=== PATIENT | female | born 1965 | race Hispanic/Latino ===

== ENCOUNTER 2017-09-22 01:09 | Emergency (ER) | payer SELFPAY ==
[~2017-09-22 01:09] MED LIST: LISI1TAB9 PO
== END 2017-09-22 01:48 | disposition home or self-care (01) ==
LOC: EDH 01:09
DX: S50.02XA Contusion of left elbow, initial encounter (principal); S60.212A Contusion of left wrist, initial encounter; Z98.890 Other specified postprocedural states; Z72.0 Tobacco use; W18.39XA Other fall on same level, initial encounter; Y93.89 Activity, other specified; Y92.89 Other specified places as the place of occurrence of the external cause; Y99.8 Other external cause status
CPT/HCPCS: 73080; 73110

== ENCOUNTER 2018-05-16 16:22 | Emergency (ER) | payer OTHER ==
[2018-05-16] MEDS ORDERED: LACTATED RINGERS 1000ML 1,000 ML IV ONE (16:57)
[2018-05-16] MEDS ORDERED: FAMOTIDINE/PF 20 MG/2 ML VIAL IV ONE (16:58)
[2018-05-16 17:03] LABS: APPEARANCE,URINE Clear (CLEAR); BILIRUBIN,URINE Negative (NEGATIVE); COLOR,URINE Dark Yellow (YELLOW); GLUCOSE, URINE (UA) Negative (NEGATIVE); KETONES,URINE 15 mg/dL (NEGATIVE); LEUKOCYTE ESTERASE ,URINE Trace (NEGATIVE); NITRATE,URINE Negative (NEGATIVE); OCCULT BLOOD,URINE Negative (NEGATIVE); PROTEIN,URINE Trace (NEGATIVE)
[2018-05-16] MEDS ORDERED: LIDOCAINE HCL 2% VISCOUS 15 ML UDCUP ONE (17:18)
[2018-05-16 17:19] LABS: BACTERIA,URINE Rare /HPF (None Seen); MUCUS,URINE Moderate LPF (None Seen); RBC,URINE None Seen /HPF (0-1); WBC,URINE 0-1 /HPF (0-1)
[2018-05-16] MEDS ORDERED: KETOROLAC TROMETHAMINE 30MG/ML ONE (17:19)
[2018-05-16] MEDS ORDERED: PREDNISONE 20 MG TABLET ONE ×2 (17:19→17:20)
[2018-05-16] MEDS ORDERED: MAG HYDROX/AL HYDROX/SIMETH ES 30 ML SUSP UDCUP ONE (17:19)
[2018-05-16 17:24] LABS: EOSINOPHILS % (AUTO) 2.7 % (0.0-8.0); LYMPHOCYTES % (AUTO) 37.3 % (21.0-51.0); MEAN CORPUSCULAR HEMOGLOBIN 30.6 pg (27.0-33.0); MEAN CORPUSCULAR HGB CONC 34.1 g/dL (32.0-36.0); MEAN CORPUSCULAR VOLUME 89.8 fL (79-99); MONOCYTES % (AUTO) 7.3 % (3.0-13.0); NEUTROPHILS % (AUTO) 51.7 % (40.0-77.0); PLATELET COUNT (AUTO) 349 K/uL (130-400); RED BLOOD CELL COUNT(AUTO) 4.56 MIL/uL (4.00-5.50); RED CELL DISTRIBUTION WIDTH 14.6 % (11.0-15.5); WHITE BLOOD COUNT (AUTO) 7.4 K/uL (4.8-10.8)
[2018-05-16 17:35] LABS: CREATININE 0.7 mg/dL (0.5-1.5); POTASSIUM 3.8 mmol/L (3.5-5.1)
[2018-05-16 17:38] LABS: ALBUMIN 3.6 g/dL (3.5-5.0); BILIRUBIN,TOTAL 0.7 mg/dL (0.2-1.0)
[2018-05-16] MEDS ORDERED: IPRATROPIUM/ALBUTEROL SULFATE 3 ML SOLUTION IH ONE (17:53)
== END 2018-05-16 18:47 | disposition home or self-care (01) ==
LOC: EDH 16:22
DX: B34.9 Viral infection, unspecified (principal); J03.90 Acute tonsillitis, unspecified; Z72.0 Tobacco use
CPT/HCPCS: 36415; 80053; 81001; 83605; 83690; 85025; 87804 ×2; 87880; 94640; 96372; 96374; 99284; J1885; J3490; J7120

== ENCOUNTER 2022-07-07 11:20 | Emergency (ER) | payer OTHER ==
[~2022-07-07] VITALS: Ht 165.1 cm; Wt 86.2 kg
[~2022-07-07 11:20] MED LIST changes: +LISI1TAB49 PO; -LISI1TAB9 PO
[2022-07-07 11:53] LABS: BASOPHILS % (AUTO) 0.9 % (0.0-5.0); EOSINOPHILS % (AUTO) 2.6 % (0.0-8.0); HEMATOCRIT 46.9 % (36-48); LYMPHOCYTES % (AUTO) 37.5 % (21.0-51.0); MEAN CORPUSCULAR HEMOGLOBIN 29.7 pg (27.0-33.0); MEAN CORPUSCULAR HGB CONC 32.6 g/dL (32.0-36.0); MEAN CORPUSCULAR VOLUME 91.1 fL (79-99); MONOCYTES % (AUTO) 7.9 % (3.0-13.0); NEUTROPHILS % (AUTO) 50.8 % (40.0-77.0); PLATELET COUNT (AUTO) 296 K/uL (130-400); RED BLOOD CELL COUNT(AUTO) 5.15 MIL/uL (4.00-5.50); RED CELL DISTRIBUTION WIDTH 13.2 % (11.0-15.5); WHITE BLOOD COUNT (AUTO) 7.6 K/uL (4.8-10.8)
[2022-07-07 11:55] LABS: APPEARANCE,URINE CLEAR (CLEAR); BILIRUBIN,URINE NEGATIVE (NEGATIVE); COLOR,URINE COLORLESS (YELLOW); GLUCOSE, URINE (UA) NEGATIVE (NEGATIVE); KETONES,URINE NEGATIVE (NEGATIVE); LEUKOCYTE ESTERASE ,URINE NEGATIVE Leu/uL (NEGATIVE); NITRATE,URINE NEGATIVE (NEGATIVE); OCCULT BLOOD,URINE NEGATIVE (NEGATIVE); PROTEIN,URINE NEGATIVE (NEGATIVE); RBC,URINE 0-1 /HPF (0-1); SQUAMOUS EPITHELIAL CELL,UR RARE /HPF (0-2); UROBILINOGEN,URINE 0.2 mg/dL (0.2-1.0)
[2022-07-07 11:57] LABS: CREATININE 0.7 mg/dL (0.5-1.5); POTASSIUM 3.4 mmol/L (3.5-5.1)
[2022-07-07 12:02] LABS: TOTAL PROTEIN, SERUM 8.8 g/dL (6.0-8.3)
[2022-07-07 12:22] VITALS: BP 146/78
[2022-07-07] MEDS ORDERED: POTASSIUM BICARB/CIT AC 25 MEQ TABLET.EFF ONE (13:06)
[2022-07-07] MEDS ORDERED: HYDR12.54 PO (13:11)
== END 2022-07-07 13:47 | disposition home or self-care (01) ==
LOC: EDH 11:20
DX: I10 Essential (primary) hypertension (principal); Z91.199 Patient's noncompliance with other medical treatment and regimen due to unspecified reason; Z79.899 Other long term (current) drug therapy
CPT/HCPCS: 36415; 71045; 80053; 81001; 84484; 85025; 93005

== ENCOUNTER 2023-07-19 11:53 | Emergency (ER) | payer OTHER ==
[~2023-07-19] VITALS: Ht 165.1 cm; Wt 86.2 kg
[~2023-07-19 11:53] MED LIST changes: +HYDR12.54 PO
[2023-07-19 12:18] VITALS: BP 156/91; PULSE 90; RESP 16; O2SAT 97
[2023-07-19] MEDS ORDERED: MELOXICAM 7.5 MG TABLET PO SCH (15:00)
[2023-07-19 15:26] LABS: BASOPHILS # (AUTO) 0.06 K/uL (0.00-0.20); BASOPHILS % (AUTO) 0.7 % (0.0-5.0); EOSINOPHILS # (AUTO) 0.18 K/uL (0.00-0.70); HEMATOCRIT 40.1 % (36-48); IMMATURE GRANULOCYTE ABSOLUTE 0.02 K/uL (0-1); LYMPHOCYTES # (AUTO) 3.2 K/uL (1.0-4.8); MEAN CORPUSCULAR HEMOGLOBIN 29.9 pg (27.0-33.0); MEAN CORPUSCULAR HGB CONC 32.9 g/dL (32.0-36.0); MEAN CORPUSCULAR VOLUME 90.7 fL (79-99); MONOCYTES # (AUTO) 0.7 K/uL (0.1-1.0); MONOCYTES % (AUTO) 7.8 % (3.0-13.0); NEUTROPHILS # (AUTO) 4.8 K/uL (1.8-7.7); NEUTROPHILS % (AUTO) 53.3 % (40.0-77.0); PLATELET COUNT (AUTO) 315 K/uL (130-400); RED BLOOD CELL COUNT(AUTO) 4.42 MIL/uL (4.00-5.50); RED CELL DISTRIBUTION WIDTH 13.9 % (11.0-15.5); WHITE BLOOD COUNT (AUTO) 8.9 K/uL (4.8-10.8)
[2023-07-19 15:39] LABS: CREATININE 0.7 mg/dL (0.5-1.5); POTASSIUM 4.1 mmol/L (3.5-5.1)
[2023-07-19] MEDS ORDERED: MELO-106 PO (16:20)
[2023-07-19 16:34] LABS: ERYTHROCYTE SEDIMENTATION RATE 28 MM/HR (0-30)
== END 2023-07-19 17:22 | disposition home or self-care (01) ==
LOC: EDH 11:53
DX: M17.12 Unilateral primary osteoarthritis, left knee (principal); M25.462 Effusion, left knee; I10 Essential (primary) hypertension; E78.00 Pure hypercholesterolemia, unspecified; Z90.49 Acquired absence of other specified parts of digestive tract; Z79.899 Other long term (current) drug therapy; Z98.890 Other specified postprocedural states
CPT/HCPCS: 36415; 73562; 80048; 85025; 85651

== ENCOUNTER 2025-04-07 08:24 | Observation (INO) | payer OTHER, MEDICARE ==
[2025-04-06 13:25] LABS: IMMATURE GRANULOCYTE ABSOLUTE 0.01 K/uL (0-1); NUCLEATED RED BLOOD CELLS 0.0 % (0.0-0.19); PLATELET COUNT (AUTO) 301 K/uL (130-400); RED BLOOD CELL COUNT(AUTO) 4.19 MIL/uL (4.00-5.50); RED CELL DISTRIBUTION WIDTH 13.5 % (11.0-15.5); WHITE BLOOD COUNT (AUTO) 7.5 K/uL (4.8-10.8)
[2025-04-06 13:35] LABS: INR 1.02 (0.85-1.15)
[2025-04-06 13:48] LABS: APPEARANCE,URINE CLEAR (CLEAR); GLUCOSE, URINE (UA) NEGATIVE (NEGATIVE); LEUKOCYTE ESTERASE ,URINE NEGATIVE Leu/uL (NEGATIVE); NITRATE,URINE NEGATIVE (NEGATIVE); OCCULT BLOOD,URINE NEGATIVE (NEGATIVE)
--- NOTE | 2025-04-06 13:50 | NUR ---
RE: IS INITIAL IS INITIAL INSTRUCTIONS DONE DURING PREOP BY RT CAMILA.
[2025-04-06 13:51] VITALS: BP 151/75; PULSE 68; RESP 17; TEMP 98.4
[2025-04-06 13:55] LABS: ADD UA MICROSCOPIC NO
[2025-04-07] VITALS (25 sets, daily range): BP systolic 91–121; BP diastolic 32–79; PULSE 66–92; RESP 10–20; TEMP 96.8–98.2; O2SAT 99–100
[~2025-04-07] VITALS: Ht 165.1 cm; Wt 91.4 kg
[~2025-04-07 08:24] MED LIST changes: -HYDR12.54 PO; -LISI1TAB49 PO; +LISI20TA24 PO; +SIMV-46 PO
[2025-04-07] MEDS: LACTATED RINGERS 1000ML 1,000 ML IV ONE (08:48)
[2025-04-07 09:20] LABS: CREATININE 0.7 mg/dL (0.5-1.0); GLOMERULAR FILTR. RATE CALC 101.0 mL/min (>90); GLUCOSE,RANDOM 100.0 mg/dL (70-105); SODIUM SERUM 140.0 mmol/L (136-145); UREA NITROGEN, BLOOD 13.0 mg/dL (7-18)
[2025-04-07] MEDS ORDERED: VANCOMYCIN 500MG+NS 100ML 100 ML IV ONE (12:11)
[2025-04-07] MEDS ORDERED: MIDAZOLAM HCL 1 MG/ML 2ML VIAL ONE (12:50)
[2025-04-07] MEDS ORDERED: SUCCINYLCHOLINE CHLORIDE 20 MG/ML 10 ML VIAL ONE (12:53)
[2025-04-07] MEDS: TRANEXAMIC ACID 1000MG/10ML ONE ×2 (13:25→16:51)
[2025-04-07] MEDS ORDERED: FERROUS FUMARATE 324 MG TABLET PO PRN (16:00)
[2025-04-07] MEDS ORDERED: CALCIUM CARB 500MG PO PRN (16:00)
[2025-04-07] MEDS ORDERED: PoTASSium chl 10% ELIXIR 20MEQ 20 MEQ/15 ML UDCUP PO PRN (16:00)
[2025-04-07] MEDS ORDERED: PoTASSium chloRIDE 20MEQ ER 20 MEQ ERTAB PO PRN (16:00)
--- NOTE | 2025-04-07 16:04 | OP ---
Operative Note: DATE OF PROCEDURE: 04/07/25 SURGEON: MELVIN ORTEGA MD MINUTE CLERK FOR BASIC TRAFFIC: [Lashawn Mills CFA] ANESTHESIA: [General anesthesia plus regional block] ANESTHESIOLOGIST/ACTIVITIES AIDE: [Candido Strickland CRNA] PREOPERATIVE DIAGNOSIS: [Left knee osteoarthritis] POSTOPERATIVE DIAGNOSIS: [Same] IMPLANTS: [Biomet vanguard. Femur 65 left PS. Tibia 67 fixed cruciate. Tibial liner 14 by 63/67 PS plus. Patella size 31 by eight, asymmetric] PROCEDURE: [Left total knee arthroplasty] ESTIMATED BLOOD LOSS: [100 mL] INDICATIONS: [The patient is a 59-year-old female with a history of pain to the left knee secondary to osteoarthritis. The patient has been admitted for a left total knee arthroplasty after failing conservative treatment. The patient understood the procedure, risks, benefits and possible complications and agreed signed the consent form.] DESCRIPTION OF PROCEDURE: [After adequate general anesthesia was achieved and regional block obtained the left lower extremity was prepped and draped in the usual manner previous placement of the tourniquet in the proximal thigh. The extremity was then elevated and exsanguinated with an Esmarch bandage and the tourniquet inflated to 250 mmHg the Esmarch band been then removed. With the knee in flexion a longitudinal incision was then made in the anterior aspect through the skin followed by dissection of the subcutaneous tissue. A bone infusion needle was then inserted just medial to the tibial tuberosity and through this needle we injected into the bone a solution of normal saline 50 mL mixed with 500 mg of vancomycin. The needle was removed. A paramedian approach was then made with the Bovie cautery cutting through the quadriceps tendon, medial patellar retinaculum and patellar tendon retinaculum. The retropatellar tendon fat was then excised and the soft tissue elements of the tibia were elevated subperiosteally and retractors were applied medially and laterally . The anterior and posterior cruciate ligaments were resected. With the use of a drill a starting hole was made in the distal femur entering the intramedullary canal and then after removal of the drill an intramedullary guide was inserted with a 5 degree valgus block that touched the distal femur and to this the distal femoral cutting guide was then applied anteriorly and was secured to the distal femur with the use of pins. The intramedullary guide was then removed and with the use of the oscillating saw we proceeded to resect the distal femur removing the fragments and the guide. The femoral sizer was then applied distally and drill holes were made removing the sizer and the 4-in-1 cutting block was then inserted and the anterior, posterior and chamfer cuts were made removing the fragments and the block. The PS cutting guide was then inserted and the intercondylar cut was made removing the fragment and the guide. The posterior cruciate ligament retractor was then inserted posterior to the tibia and this was brought forward proceeding then to apply the external tibial alig nment guide and secured the proximal cutting guide to the tibia with the use of pins. With the use of the oscillating saw the proximal cut to the tibia tibia was made. The bone fragment was removed and the trial tibia plate was chosen. At this point the menisci were removed sharply and with the use of the curved osteotome the posterior osteophytes of the femur were removed. The trial components were then inserted at the femur and tibia with a trial tibial liner bringing the knee into extension noticing that the patient had a very stable knee in flexion, extension and with valgus and varus stress. The knee was maintained in extension and the patella was then addressed proceeding to measure its thickness and then with the use of the oscillating saw we removed eight mm from the articular surface and restored the height with application of a trial component after 3 peg holes were made. The patellofemoral ligament was removed and then the patellofemoral tracking was checked noticing to be slightly lateralized and for this reason a small lateral retinacular release was performed bringing the tracking back to normal. At this moment all the components were removed, the tibia after the metaphyseal defect was created and while cement was being mixed on the back table we proceeded to irrigate the joint with antibiotic solution and then cover the entry to the femoral canal with a bone plug. Once the cement was ready we proceeded to apply it first to the tibia surface inserting the final component and then to the femoral surface and inserted the final component removing the excess cement and then applying a trial liner bringing the knee into extension for compression. Then we proceeded to irrigate the patella surface and dried it applying then bone cement and the final patellar component was inserted and was secured with application of a clamp. The joint was irrigated with a warm diluted Betadine solution while the cement dried followed by irrigation with antibiotic solution. The trial liner was removed as well as the patellar clamp and we proceeded then to irrigate the posterior aspect of the joint to remove all the remaining debris and the final tibial liner was inserted and locked against the tibia. The range of motion was checked and noticed to be adequate with full extension and flexion, no laxity in valgus or varus stress and with adequate patellofemoral tracking. The patient had no anterior or posterior drawer. The tourniquet was then deflated and this was followed by hemostasis and the wound was then closed with approximation of the quadriceps tendon, patellar retinaculum and patellar tendon retinaculum with #1 Vicryl close stitches alternating with #1 Ethibond stitches, and closure of the subcutaneous tissue with 2-0 Monocryl inverted stitches and the skin was closed with 3-0 Monocryl subcuticularly. The wound was covered with a suction dressing followed by application of an Pedrito bandage for compression and the drapes were then removed transferring the patient to the hospital bed and taken to recovery room for follow-up by anesthesia. There were no complications during the procedure.] MELVIN ORTEGA MD Apr 07, 2025 16:04
--- NOTE | 2025-04-07 17:26 | NUR ---
left lower ext warm touch ,capillary <3 , pedial pulse +2.
--- NOTE | 2025-04-07 18:06 | NUR ---
PATIENT ARRIVED ON UNIT VIA HOSPITAL BED. NO SIGNS OF DISTRESS NOTED. PATIENT VERBALIZES NO PAIN ON ARRIVAL. WILL CONTINUE TO MONITOR AND FOLLOW THROUGH WITH ORDERS.
[2025-04-07] MEDS: 0.9%NACL 1000ML 1,000 ML IV SCH (18:15)
--- NOTE | 2025-04-07 18:20 | NUR ---
late entry gave pt 0.5 mg hydromorphone via ivp at 1713 , for pain level of 10 per anesthesia orders. At 171 gave second dose of hydromorphone 0.5 mg ivp for pain level of 9 , gave a total of 1mg hydromorphone . Pt resting eyes closed report decrease of pain level to a 2.
--- NOTE | 2025-04-07 18:33 | NUR ---
late entry at 1735 Gave report to Kirsty Holloway .
[2025-04-07] MEDS: LISINOPRIL 20 MG TABLET PO SCH (19:46)
[2025-04-07] MEDS: ASPIRIN 81 MG EC TAB PO SCH (20:01)
[2025-04-07] MEDS: FAMOTIDINE 20MG TAB PO SCH (20:01)
[2025-04-08] VITALS: BP 148/74; PULSE 84; RESP 20; TEMP 97.6
[2025-04-08 04:00] VITALS: BP 112/73; PULSE 75; RESP 20; TEMP 97.8
[2025-04-08 04:17] LABS: NUCLEATED RED BLOOD CELLS 0.0 % (0.0-0.19); PLATELET COUNT (AUTO) 201.0 K/uL (130-400); RED BLOOD CELL COUNT(AUTO) 3.18 MIL/uL (4.00-5.50); RED CELL DISTRIBUTION WIDTH 13.7 % (11.0-15.5); WHITE BLOOD COUNT (AUTO) 8.7 K/uL (4.8-10.8)
[2025-04-08 04:26] LABS: CREATININE 1.2 mg/dL (0.5-1.0); GLOMERULAR FILTR. RATE CALC 53.0 mL/min (>90); GLUCOSE,RANDOM 91.0 mg/dL (70-105); SODIUM SERUM 139.0 mmol/L (136-145); UREA NITROGEN, BLOOD 16.0 mg/dL (7-18)
[2025-04-08 08:10] VITALS: BP 96/64; PULSE 65; RESP 16; TEMP 97.5
[2025-04-08 08:11] VITALS: O2SAT 98
--- NOTE | 2025-04-08 08:59 | PN ---
Ortho postop day one. The patient is awake alert and oriented she is seated out of bed in a chair resting comfortably alternating extension and flexion of the foot on a footstool. The Pedrito bandage his already been removed the anterior dressing is intact. The gastrocnemius a soft nontender. Negative Homans. There is edema about the extremity which is expected. Ice present to op-site. Distal neurovascular exam normal. Vital signs have remained stable. She is afebrile. Laboratory results reviewed. Noted to have a drop in hemoglobin and hematocrit as expected after TKA. Patient is currently asymptomatic we will continue to observe and treat per protocol as necessary. Voiding on her own. Passing gas. Incentive spirometry reinforced. Operative findings discussed with the patient. Bilateral SCD leaves are present. Did not ambulate with physical therapy but did dangle at the bedside and is pending therapy this morning. Anticipated discharge goal is home health/PT. Assessment: Status post left total knee arthroplasty. Asymptomatic acute postoperative blood loss anemia. Plan: Continue with Dr. Sherwood TKA protocol and discharge planning. Asymptomatic acute postoperative blood loss anemia addressed with the protocol as necessary Vitals/Labs Vital Signs Date Time Temp Pulse Resp B/P (MAP) Pulse Ox O2 Delivery O2 Flow Rate FiO2 04/08/25 08:11 98 Room Air* 0 21 04/08/25 08:10 97.5 65 16 96/64 Laboratory Tests 04/08/25 03:43 Medications Current Medications Cefazolin Sodium 2 gm STK-MED ONCE .ROUTE Last administered on 04/07/25at 13:20; Start 04/07/25 at 08:48; Stop 04/07/25 at 08:49; Status DC Lactated Ringer's 1,000 ml @ As Directed STK-MED ONCE IV; Start 04/07/25 at 08:48; Stop 04/07/25 at 08:49; Status DC Tranexamic Acid 1,000 mg STK-MED ONCE .ROUTE Last administered on 04/07/25at 13:25; Start 04/07/25 at 12:11; Stop 04/07/25 at 12:11; Status DC Cefazolin Sodium 1 gm STK-MED ONCE .ROUTE Last administered on 04/07/25at 13:57; Start 04/07/25 at 12:11; Stop 04/07/25 at 12:11; Status DC Vancomycin HCl 100 ml @ As Directed STK-MED ONCE IV; Start 04/07/25 at 12:11; Stop 04/07/25 at 12:11; Status DC Midazolam HCl 2 mg STK-MED ONCE .ROUTE; Start 04/07/25 at 12:50; Stop 04/07/25 at 12:50; Status DC Succinylcholine Chloride 200 mg STK-MED ONCE .ROUTE; Start 04/07/25 at 12:53; Stop 04/07/25 at 12:54; Status DC Propofol 200 mg STK-MED ONCE IV; Start 04/07/25 at 12:53; Stop 04/07/25 at 12:54; Status DC Rocuronium [place] 50 mg STK-MED ONCE .ROUTE; Start 04/07/25 at 12:54; Stop 04/07/25 at 12:54; Status DC Fentanyl Citrate 100 mcg STK-MED ONCE .ROUTE; Start 04/07/25 at 12:54; Stop 04/07/25 at 12:54; Status DC Rocuronium Madison 50 mg STK-MED ONCE .ROUTE; Start 04/07/25 at 14:08; Stop 04/07/25 at 14:08; Status DC Phenylephrine HCl 10 mg STK-MED ONCE IV; Start 04/07/25 at 15:42; Stop 04/07/25 at 15:48; Status DC Sodium Chloride 1,000 ml @ 100 mls/hr Q10H IV Last administered on 04/07/25at 18:15; Start 04/07/25 at 16:00; Stop 04/08/25 at 15:59 Polyethylene Glycol 17 gm DAILY PO Last administered on 04/08/25at 08:02; Start 04/08/25 at 09:00; Stop 05/08/25 at 08:59 Bisacodyl 10 mg DAILY PRN RC; Start 04/10/25 at 16:00; Stop 05/10/25 at 15:59 Ketorolac Tromethamine 15 mg Q6H PRN IV; Start 04/07/25 at 16:00; Stop 04/12/25 at 15:59 Famotidine 20 mg BID PO Last administered on 04/08/25at 08:02; Start 04/07/25 at 21:00; Stop 05/07/25 at 20:59 Ferrous Fumarate 324 mg DAILY PRN PO; Start 04/07/25 at 16:00; Stop 05/07/25 at 15:59 Temazepam 15 mg HS PRN PO; Start 04/07/25 at 16:00; Stop 05/07/25 at 15:59 Ondansetron HCl 4 mg Q6H PRN IVP Last administered on 04/08/25at 08:02; Start 04/07/25 at 16:00; Stop 05/07/25 at 15:59 Calcium Carbonate 500 mg Q12H PRN PO; Start 04/07/25 at 16:00; Stop 05/07/25 at 15:59 Diphenhydramine HCl 25 mg Q6H PRN IVP; Start 04/07/25 at 16:00; Stop 05/07/25 at 15:59 Cefazolin Sodium 2 gm Q8H IVP Last administered on 04/08/25at 05:02; Start 04/07/25 at 21:00; Stop 04/08/25 at 05:01; Status DC Potassium Chloride 100 ml @ 100 mls/hr AD PRN IV; Start 04/07/25 at 16:00; Stop 05/07/25 at 15:59 Potassium Chloride 20 meq AD PRN PO; Start 04/07/25 at 16:00; Stop 05/07/25 at 15:59 Potassium Chloride 20 meq AD PRN PO; Start 04/07/25 at 16:00; Stop 05/07/25 at 15:59 Oxycodone HCl 5 mg Q4H PRN PO; Start 04/07/25 at 16:00; Stop 04/14/25 at 15:59 Oxycodone HCl 10 mg Q4H PRN PO Last administered on 04/08/25at 01:25; Start 04/07/25 at 16:00; Stop 04/14/25 at 15:59 Tramadol HCl 50 mg Q6H PRN PO Last administered on 04/08/25at 06:17; Start 04/07/25 at 16:00; Stop 04/12/25 at 15:59 Acetaminophen 1,000 mg Q8H PO Last administered on 04/08/25at 08:02; Start 04/07/25 at 16:00; Stop 04/09/25 at 15:59 Aspirin 81 mg BID PO Last administered on 04/08/25at 08:02; Start 04/07/25 at 21:00; Stop 05/07/25 at 20:59 Ephedrine Sulfate 50 mg STK-MED ONCE .ROUTE; Start 04/07/25 at 16:11; Stop 04/07/25 at 16:12; Status DC Tranexamic Acid 1,000 mg STK-MED ONCE .ROUTE Last administered on 04/07/25at 16:51; Start 04/07/25 at 16:45; Stop 04/07/25 at 16:46; Status DC Ketorolac Tromethamine 30 mg STK-MED ONCE .ROUTE Last administered on 04/07/25at 16:59; Start 04/07/25 at 16:56; Stop 04/07/25 at 16:56; Status DC Hydromorphone HCl 0.5 mg ONCE ONCE IVP; Start 04/07/25 at 17:05; Stop 04/07/25 at 17:07; Status DC Hydromorphone HCl 1 mg STK-MED ONCE .ROUTE Last administered on 04/07/25at 17:13; Start 04/07/25 at 17:04; Stop 04/07/25 at 17:09; Status DC Lisinopril 20 mg BID PO; Start 04/07/25 at 21:00; Stop 05/07/25 at 20:59 Simvastatin 40 mg HS PO Last administered on 04/07/25at 20:01; Start 04/07/25 at 21:00; Stop 05/07/25 at 20:59 PALOMO SHAHID NP Apr 08, 2025 08:59
--- NOTE | 2025-04-08 11:45 | NUR ---
[facility] CM MET WITH PT INITIAL ASSESSMENT DONE. PATIENT IS INDEPENDENT PRIOR TO SURGERY, LIVES AT HOME WITH HER SPOUSE, DAUGHTER LIVES WITH PT AND SPOUSE AT HOME. PATIENT HAS CRUTCHES, WALKER, SHOWER CHAIR, BEDSIDE COMMODE, BPM AT HOME. DENIES ANY OTHER EQUIPMENT/SERVICES. FEELS SAFE TO GO BACK HOME, STILL DRIVE PRIOR TO SURGERY, AND DAUGHTER ABLE TO ASSIST WITH TRANSPORTATION AND NEEDS NECESSARY. DISCUSSED MD RECOMMENDATIONS FOR HOME W/HH FOR PT, PT AGREEABLE, CONSENT SIGNED [facility] FOR [facility]. [facility] HOME W/HH ONCE APPROVED. CM TO CONTINUE TO FOLLOW UP. Addendum: 04/08/25 at 1500 by BENITEZ CHAVARRIA LVN Amended: Links added.
[2025-04-08 11:49] VITALS: BP 103/73; PULSE 69; RESP 12; TEMP 97.6
--- NOTE | 2025-04-08 12:45 | NUR ---
ORTHO COORDINATOR: TEACHING REGARDING DVT AND PNEUMONIA PREVENTION, PAIN EXPECTATIONS AND PAIN MANAGEMENT. PATIENT IN BED, DRESSING IN HOUSE COAT. DAUGHTER AT BEDSIDE. PATIENT TEARFUL. DISCUSSED CONCERNS. PATIENT CONCERNED ABOUT PROGRESSING AND GETTING BETTER. REASSURED RECOVERY TIME VARIES BY INDIVIDUAL AND ENCOURAGED AMBULATION, HYDRATION AND PARTICIPATING IN PHYSICAL THERAPY TO ACHIEVE THE BEST OUTCOMES. SET EXPECTATIONS WITH PHYSICAL THERAPY FOR TODAY. PATIENT INTENDS TO DISCHARGE HOME WITH HOME HEALTH PHYSICAL THERAPY. REVIEWED PROCESS IN DETAIL. QUESTIONS ANSWERED. PATIENT HAS NOT SHOWERED THIS MORNING. SET EXPECTATION FOR PATIENT TO SHOWER, RATIONALE PROVIDED. SONIA DRESSING CLEAN, DRY AND INTACT, CASSETTE FUNCTIONING, LIGHT FLASHING GREEN. SONIA SYSTEM EXPLAINED, INSTRUCTIONS PROVIDED. B SCD'S IN PLACE AND FUNCTIONING. PATIENT RETURN DEMONSTRATED PROPER USE OF INCENTIVE SPIROMETER AND FOOT FLEXION/EXTENSION EXERCISES. PATIENT ABLE TO VERBALIZE FREQUENCY OF USE FOR INCENTIVE SPIROMETER. PAIN STRATEGY REVIEWED. CURRENTLY PATIENT'S PAIN MANAGED. ALL QUESTIONS ANSWERED. PATIENT FEELS CONFIDENT DISCHARGING TODAY. DISCUSSED BLOOD PRESSURE ISSUES. AGREED TO RE-EVALUATE AFTER PHYSICAL THERAPY THIS AFTERNOON AND DISCUSSION WITH SURGEON. 1300 PATIENT STATUS DISCUSSED WITH PRIMARY NURSE. PRIMARY NURSE ACKNOWLEDGED COMMUNICATION.
[2025-04-08] MEDS ORDERED: 0.9% NACL 500ML IV.SOLN 500 ML IV SCH (15:30)
[2025-04-08 16:00] VITALS: BP 114/61; PULSE 70; RESP 18; TEMP 97.8
[2025-04-08] MEDS ORDERED: AEC81 PO (18:03)
[2025-04-08] MEDS ORDERED: HYDR-4060 PO (18:03)
--- NOTE | 2025-04-08 19:12 | NUR ---
DISCHARGE DR. ORTEGA INPUTTED HOME HEALTH DISCHARGE ORDERS TO [facility]. REPORT/ DISCHARGE INSTRUCTIONS GIVEN TO EBONY BRYANT FROM [facility]. ALL DISCHARGE ORDERS GIVEN TO PT/ AT BED SIDE. SONIA DRESSING IN TACT. CONFIRMED WITH GEREMIAS BRYANT CHARGE NURSE THAT I CAN LOAN OUT WALKER WITH LOAN FORM SIGNED. PATIENT CONFIRMED THAT SHE WILL RETURN WALKER TO ER TOMORROW. PATIENT DISCHARGED VIA WHEEL CHAIR BY SONIA GALLEGOS. DISCHARGE COMPLETE.
--- NOTE | 2025-04-09 13:30 | NUR ---
ORTHO COORDINATOR: FOLLOW UP CALL AFTER DISCHARGE. PATIENT REPORTS FIRST HOME HEALTH VISIT TODAY. CURRENTLY REPORTS PAIN 5/10. PAIN EXPECTATIONS REALISTIC. REPORTS SHE JUST COMPLETED EXERCISES AND EXPECTS PAIN TO INCREASE, TOOK PAIN MEDICATION INDICATED. CONFIRMED DATE AND TIME OF FOLLOW-UP VISIT WITH SURGEON. PATIENT HAS NOT RECEIVED WALKER, CONCERNED, STATED SHE SIGNED A PAPER STATING IT WAS TO BE RETURN TODAY. GAVE PERMISSION FOR PATIENT TO RETURN WALKER ON THE SAME DAY HER POST OPERATIVE VISIT WITH DR. ORTEGA. PATIENT VERBALIZED UNDERSTANDING.
== END 2025-04-08 19:00 | disposition home health service (06) ==
LOC: DAH 08:24 → DAHIP 08:25 → DAH 08:25 → 4AH 18:00
PROVIDERS: ADMIT Orthopaedic Surgery; ATTEND Orthopaedic Surgery
DX: M17.12 Unilateral primary osteoarthritis, left knee (principal); D62 Acute posthemorrhagic anemia; I10 Essential (primary) hypertension; E66.9 Obesity, unspecified; Z68.33 Body mass index [BMI] 33.0-33.9, adult; Z79.899 Other long term (current) drug therapy; Z98.890 Other specified postprocedural states
CPT/HCPCS: 85025; 85610; 87086; 81003; 36415 ×3; 87641; 27447; 96365; 80048 ×2; 96366; 96375; 85027; 97161; 97116; 97530; G0378 ×27; A4223 ×2; C1713 ×2; A4663; J7120 ×2; J3010; J0690 ×4; J1171; J3490 ×5; J0330; J2250; J2704; J1885 ×2; J2371; J3373; A9272; A4649 ×3; A4930 ×2; C1776; A5120; A4215; A4213; A4222; A4221; A4216; J2405